=== PATIENT | male | born 1985 | race Caucasian/White ===

== ENCOUNTER 2021-02-15 23:21 | Emergency (ER) | payer SELFPAY ==
[~2021-02-15] VITALS: Ht 167.6 cm; Wt 68.6 kg
[2021-02-15 23:59] LABS: BASO # 0.1 (0.0-0.2); BASO % 0.5 % (0.0-2.0); EOS # 0.1 (0.0-0.7); EOS % 0.8 % (0-4.0); GRAN # 5.6 (1.4-6.5); GRAN % 60.3 % (42.2-75.2); HEMATOCRIT 45.8 % (42.0-52.0); HEMOGLOBIN 15.5 g/dl (13.5-18.0); LYMPH # 2.5 (1.2-3.4); LYMPH % 26.8 % (20.0-51.0); MEAN CELL VOLUME 91 fl (80.0-100.0); MEAN CORPUSCULAR HEMOGLOBIN 31 pg (27.0-31.0); MEAN CORPUSCULAR HGB CONC 34 g/dl (33.0-37.0); MEAN PLATELET VOLUME 8.8 fl (7.4-10.4); PLATELET COUNT 266 K/mm3 (130-400); RED BLOOD COUNT 5.02 M/mm3 (4.20-5.60); REDCELL DISTRIBUTION WIDTH-CV 12.7 % (11.5-14.5)
[2021-02-16 00:07] LABS: INR 0.9 (0.8-3.0); PROTHROMBIN TIME 10.1 SECONDS (9.7-12.8)
[2021-02-16 00:10] LABS: ALANINE AMINOTRANSFERASE 32 U/L (4-49); ALBUMIN 4.4 gm/dL (3.5-5.0); ALKALINE PHOSPHATASE 102 U/L (50-136); ANION GAP 11 mmol/L (7-16); AST,SGOT 34 U/L (15-37); BILIRUBIN,TOTAL < 0.1 mg/dL (0.0-1.0); BLOOD UREA NITROGEN 16 mg/dL (9-20); CARBON DIOXIDE 23 mmol/L (22-30); CHLORIDE 107 mmol/L (98-107); CREATININE, serum 0.71 (0.66-1.25); GLUCOSE 150 mg/dL (74-106); LIPASE 48 U/L (23-300); PARTIAL THROMBOPLASTIN TIME 35.8 SECONDS (26.0-37.0); POTASSIUM 3.5 mmol/L (3.4-5.0); SODIUM 140 mmol/L (137-145); TOTAL PROTEIN 7.7 gm/dL (6.4-8.2)
[2021-02-16 00:47] VITALS: BP 117/88; PULSE 80; TEMP 97.7
== END 2021-02-16 00:57 | disposition home or self-care (01) ==
LOC: COL.ER 23:21
PROVIDERS: Emergency Medicine
DX: K92.1 Melena (principal)
CPT/HCPCS: J2270; J2405; J7030

== ENCOUNTER 2024-01-14 16:13 | Emergency (ER) | payer OTHER ==
[~2024-01-14] VITALS: Ht 167.6 cm; Wt 68.6 kg
[~2024-01-14 16:13] MED LIST: ZOFRAN ODT4 MG PO
[2024-01-14] MEDS ORDERED: NS 500 ML IV ONE (17:45)
[2024-01-14] MEDS ORDERED: dexAMETHasone 10 MG/ML VIAL IV ONE (17:45)
[2024-01-14] MEDS ORDERED: diphenhydrAMINE 50 MG/ML 1 ML VIAL IV ONE (17:45)
[2024-01-14] MEDS ORDERED: Ketorolac 30 MG/ML VIAL IV ONE (17:45)
[2024-01-14] MEDS ORDERED: Magnesium Sulfate 4% 50 ML IV ONE (17:45)
[2024-01-14] MEDS ORDERED: ALPRAZolam 0.5 MG TAB PO ONE (17:45)
[2024-01-14 17:46] LABS: BASO % 0.5 % (0.0-2.0); EOS % 0.2 % (0.0-4.0); GRAN % 57.9 % (42.2-75.2); HEMATOCRIT 44.7 % (42.0-52.0); HEMOGLOBIN 15.8 g/dl (13.5-18.0); LYMPH # 2.9 K/mm3 (1.2-3.4); MEAN CELL VOLUME 88 fl (80.0-100.0); MEAN CORPUSCULAR HEMOGLOBIN 31 pg (27-31); MEAN CORPUSCULAR HGB CONC 35 g/dl (33.0-37.0); MEAN PLATELET VOLUME 8.8 fl (7.4-10.4); MONO # 0.6 K/mm3 (0.1-0.6); MONO % 7.1 % (1.7-9.3); PLATELET COUNT 309 K/mm3 (130-400); RED BLOOD COUNT 5.11 M/mm3 (4.20-5.60); REDCELL DISTRIBUTION WIDTH-CV 12.3 % (11.5-14.5)
[2024-01-14 17:52] LABS: INR 1.1 (0.8-3.0); PROTHROMBIN TIME 12.1 SECONDS (9.7-12.8)
[2024-01-14 17:55] LABS: PARTIAL THROMBOPLASTIN TIME 37.8 SECONDS (26.0-37.0)
[2024-01-14 18:09] LABS: CALCIUM 9.9 mg/dL (8.4-10.2); CREATININE, serum 0.85 mg/dL (0.72-1.25); POTASSIUM 3.7 mmol/L (3.5-4.5)
[2024-01-14 18:57] VITALS: BP 120/86; PULSE 76
== END 2024-01-14 18:57 | disposition home or self-care (01) ==
LOC: COL.ER 16:13
PROVIDERS: Internal Medicine
DX: G43.101 Migraine with aura, not intractable, with status migrainosus (principal); F41.1 Generalized anxiety disorder; R20.2 Paresthesia of skin; M79.641 Pain in right hand
CPT/HCPCS: J1100; J1200; J1885; J2765; J3475; J7040